=== PATIENT | female | born 1995 | race African-American/Black ===

== ENCOUNTER 2018-12-26 08:54 | Inpatient (IN) | payer MEDICAID ==
[~2018-12-26] VITALS: Ht 162.6 cm; Wt 112.5 kg
[2018-12-26] MEDS ORDERED: NALOXONE HCL 0.4 MG/ML 1ML VIAL IM PRN (09:45)
[2018-12-26] MEDS ORDERED: LIDOCAINE HCL 1% 20ML VIAL (Pyxis) INJ INFIL SCH (09:45)
[2018-12-26] MEDS ORDERED: CARBOPROST TROMETHAMINE 250 MCG/ML AMPUL IM PRN (09:45)
[2018-12-26] MEDS ORDERED: METHYLERGONOVINE MALEATE 0.2 MG/ML IM PRN (09:45)
[2018-12-26] MEDS: LACTATED RINGERS 1,000 ML IV SCH ×4 (09:53→22:49)
[2018-12-26 10:13] LABS: BASOPHILS % 0.4 % (0.0-2.0); EOSINOPHILS % 0.2 % (0.0-5.0); HEMATOCRIT. 35.1 % (36.0-48.0); HEMOGLOBIN. 11.5 g/dL (12.0-16.0); LYMPHOCYTES % 13.7 % (20.0-50.0); MEAN CORPUSCULAR HEMOGLOBIN 30.9 pg (28.0-32.0); MEAN CORPUSCULAR VOLUME 94.2 fL (81.0-99.0); MEAN PLATELET VOLUME 11.5 fl (7.4-10.4); MONOCYTES % 7.6 % (2.0-8.0); NEUTROPHILS % 78.1 % (40.0-76.0); PLATELET 152 x1000/uL (130-400); RED BLOOD CELL COUNT 3.72 mill/uL (4.2-5.4); RED CELL DISTRIBUTION WIDTH 15.1 % (11.6-14.6)
[2018-12-26 10:16] LABS: CLARITY URINE CLEAR (CLEAR); COLOR URINE YELLOW (YELLOW); KETONES URINE NEGATIVE (NEGATIVE); LEUKOCYTE ESTERASE URINE 3+ (NEGATIVE); NITRITE URINE NEGATIVE (NEGATIVE); OCCULT BLOOD URINE NEGATIVE (NEGATIVE); PH URINE 6.5 (4.5-8.0); PROTEIN URINE NEGATIVE (NEGATIVE); SPECIFIC GRAVITY URINE 1.012 (1.005-1.030); UROBILINOGEN URINE 0.2 E.U./dL (0.2-1.0)
[2018-12-26 10:23] LABS: PARTIAL THROMBOPLASTIN TIME 28.7 sec (23.4-31.0); PROTHROMBIN TIME 10.6 sec (9.6-11.0)
[2018-12-26 10:25] LABS: *BARBITURATES SCREEN URINE NEGATIVE (NEGATIVE)
[2018-12-26 10:26] LABS: *AMPHETAMINES SCREEN URINE NEGATIVE (NEGATIVE); *BENZODIAZEPINES SCREEN URINE NEGATIVE (NEGATIVE); *COCAINE SCREEN URINE NEGATIVE (NEGATIVE); METHADONE URINE SCREEN NEGATIVE (NEGATIVE); PHENCYCLIDINE URINE SCREEN NEGATIVE (NEGATIVE)
[2018-12-26 10:27] LABS: CANNABINOID URINE SCREEN NEGATIVE (NEGATIVE); OPIATES URINE SCREEN NEGATIVE (NEGATIVE)
[2018-12-26] MEDS: BUTORPHANOL TARTRATE 2 MG/ML VIAL IV PRN (11:05)
[2018-12-26] MEDS ORDERED: ROPIVACAINE HCL/PF EPIDURAL 200 ML EPI SCH (12:15)
[2018-12-26 12:22] LABS: HEPATITIS B SURFACE ANTIGEN NEGATIVE
[2018-12-26] MEDS: DEXT 5%/LR + PITOCIN 20UNITS/L 1,000 ML IV SCH (14:16)
[2018-12-27] MEDS ORDERED: FENTANYL CITRATE/PF 50MCG/ML 2ML VIAL ONE ×3 (01:31→11:09)
[2018-12-27] MEDS ORDERED: PNV1TABL50 MT (02:28)
[2018-12-27] MEDS ORDERED: FOLI0.4T2 MT (02:28)
[2018-12-27] MEDS: BUTORPHANOL TARTRATE 2 MG/ML VIAL IV PRN (06:23)
[2018-12-27] MEDS: LACTATED RINGERS 1,000 ML IV SCH (09:20)
[2018-12-27] MEDS ORDERED: MORPHINE SULFATE/PF 1MG/ML 10ML AMP ONE (11:10)
[2018-12-27] MEDS ORDERED: PHENYLEPHRINE HCL 10 MG/ML 1ML (IV VIAL) IV ONE (11:10)
[2018-12-27] MEDS: BUTORPHANOL TARTRATE 2 MG/ML VIAL IM PRN ×2 (11:31→16:34)
[2018-12-27] MEDS ORDERED: ROPIVACAINE HCL/PF EPIDURAL 200 ML EPI ONE (14:08)
[2018-12-27] MEDS ORDERED: MISOPROSTOL 200MCG TABLET ONE (19:38)
[2018-12-27] MEDS ORDERED: LIDOCAINE HCL 1% 20ML VIAL (Pyxis) INJ ONE (19:39)
[2018-12-27] MEDS ORDERED: DEXT 5%/LR + PITOCIN 20UNITS/L 1,000 ML IV SCH (19:54)
[2018-12-27] MEDS: DEXT 5%/LR + PITOCIN 20UNITS/L 1,000 ML IV SCH ×2 (19:56→20:31)
[2018-12-27] MEDS ORDERED: BENZOCAINE/LANOLIN/ALOE VERA SPRAY TOP PRN (20:00)
[2018-12-27] MEDS ORDERED: HEMORRHOIDAL SUPP PR PRN (20:00)
[2018-12-27] MEDS ORDERED: ACETAMINOPHEN WITH CODEINE 300/30MG TABLET PO PRN ×2 (20:00)
[2018-12-27] MEDS ORDERED: GLYCERIN/WITCH HAZEL LEAF MEDICATED PAD TOP PRN (20:00)
[2018-12-27] MEDS ORDERED: BISACODYL 10MG SUPP PR PRN (20:00)
[2018-12-27] MEDS ORDERED: ACETAMINOPHEN 500MG TABLET PO NR (20:15)
[2018-12-27] MEDS ORDERED: MISOPROSTOL 200MCG TABLET RC ONE (20:45)
[2018-12-27 22:00] VITALS: BP 133/77
[2018-12-27 22:30] VITALS: BP 133/78
[2018-12-27 23:00] VITALS: BP 106/69
[2018-12-28] MEDS: MAGNESIUM/ALUMINUM HYDROXIDE/SIMETHICONE 30ML UDC PO SCH ×5 (00:42→20:39)
[2018-12-28] MEDS: SIMETHICONE 80MG TABLET CHEW PO SCH ×5 (00:42→20:39)
[2018-12-28] MEDS: DOCUSATE SODIUM 100MG CAPSULE PO SCH ×2 (00:43→20:38)
[2018-12-28 00:51] VITALS: BP 116/65
[2018-12-28] MEDS: IBUPROFEN 400MG TABLET PO PRN (00:51)
[2018-12-28 05:00] VITALS: BP 108/57
[2018-12-28 06:49] LABS: HEMATOCRIT. 21.8 % (36.0-48.0); HEMOGLOBIN. 7.2 g/dL (12.0-16.0); MEAN CORPUSCULAR HEMOGLOBIN 30.9 pg (28.0-32.0); MEAN CORPUSCULAR VOLUME 93.7 fL (81.0-99.0); MEAN PLATELET VOLUME 11.3 fl (7.4-10.4); PLATELET 119 x1000/uL (130-400); RED BLOOD CELL COUNT 2.33 mill/uL (4.2-5.4); RED CELL DISTRIBUTION WIDTH 15.4 % (11.6-14.6)
[2018-12-28 08:20] VITALS: BP 103/52
[2018-12-28] MEDS: PRENATAL VIT/FE FUMARATE/FA TABLET PO SCH (08:38)
[2018-12-28 15:30] VITALS: BP 107/52
[2018-12-28] MEDS ORDERED: LACTATED RINGERS 1,000 ML IV SCH ×3 (16:45→18:00)
[2018-12-28 20:31] LABS: PLATELET ESTIMATE DECREASED
[2018-12-28 20:54] VITALS: BP 126/65
[2018-12-29] MEDS: IBUPROFEN 400MG TABLET PO PRN ×2 (03:59→16:44)
[2018-12-29 04:00] VITALS: BP 106/66
[2018-12-29 07:08] LABS: MEAN CORPUSCULAR HEMOGLOBIN 31.7 pg (28.0-32.0); MEAN CORPUSCULAR VOLUME 94.1 fL (81.0-99.0); MEAN PLATELET VOLUME 11.2 fl (7.4-10.4); PLATELET 135 x1000/uL (130-400); RED BLOOD CELL COUNT 2.14 mill/uL (4.2-5.4); RED CELL DISTRIBUTION WIDTH 15.5 % (11.6-14.6)
[2018-12-29] MEDS: PRENATAL VIT/FE FUMARATE/FA TABLET PO SCH (07:48)
[2018-12-29] MEDS: MAGNESIUM/ALUMINUM HYDROXIDE/SIMETHICONE 30ML UDC PO SCH ×4 (07:48→21:31)
[2018-12-29] MEDS: SIMETHICONE 80MG TABLET CHEW PO SCH ×4 (07:48→21:33)
[2018-12-29 08:00] VITALS: BP 117/71
[2018-12-29 08:25] LABS: HEMATOCRIT. 20.1 % (36.0-48.0); HEMOGLOBIN. 6.8 g/dL (12.0-16.0)
[2018-12-29] MEDS: FERROUS SULFATE 325MG TABLET PO SCH ×2 (13:21→17:56)
[2018-12-29 13:53] LABS: PLATELET ESTIMATE NORMAL
[2018-12-29 20:42] VITALS: BP 120/63
[2018-12-29 21:02] LABS: MEAN CORPUSCULAR HEMOGLOBIN 31.3 pg (28.0-32.0); MEAN CORPUSCULAR VOLUME 94.9 fL (81.0-99.0); PLATELET 140 x1000/uL (130-400); RED BLOOD CELL COUNT 1.96 mill/uL (4.2-5.4); RED CELL DISTRIBUTION WIDTH 15.5 % (11.6-14.6)
[2018-12-29 21:06] LABS: HEMOGLOBIN 6.1 g/dL (12.0-16.0)
[2018-12-29 21:07] LABS: HEMATOCRIT 18.6 % (36.0-48.0)
[2018-12-29] MEDS: DOCUSATE SODIUM 100MG CAPSULE PO SCH (21:31)
[2018-12-30] VITALS (10 sets, daily range): BP systolic 112–132; BP diastolic 62–75
[2018-12-30] MEDS: MAGNESIUM/ALUMINUM HYDROXIDE/SIMETHICONE 30ML UDC PO SCH (07:30)
[2018-12-30] MEDS: SIMETHICONE 80MG TABLET CHEW PO SCH (08:00)
[2018-12-30] MEDS: PRENATAL VIT/FE FUMARATE/FA TABLET PO SCH (08:10)
[2018-12-30] MEDS: FERROUS SULFATE 325MG TABLET PO SCH ×3 (08:10→17:29)
[2018-12-30] MEDS: IBUPROFEN 400MG TABLET PO PRN (08:11)
[2018-12-30] MEDS ORDERED: DIPHENHYDRAMINE 25MG CAPSULE PO NR (10:30)
[2018-12-30] MEDS ORDERED: ACETAMINOPHEN 325MG TABLET PO NR (10:30)
[2018-12-30 19:09] LABS: HEMATOCRIT 24.7 % (36.0-48.0); HEMOGLOBIN 8.4 g/dL (12.0-16.0); MEAN CORPUSCULAR HEMOGLOBIN 30.4 pg (28.0-32.0); PLATELET 157 x1000/uL (130-400); RED BLOOD CELL COUNT 2.75 mill/uL (4.2-5.4); RED CELL DISTRIBUTION WIDTH 16.8 % (11.6-14.6)
== END 2018-12-30 20:25 | disposition home or self-care (01) | DRG 560 ==
LOC: OBSVTOIN 08:54 → 8 EST LDRP 08:54 → 8EST 12-27 21:49
PROVIDERS: ADMIT Obstetrics & Gynecology; ATTEND Obstetrics & Gynecology
PROC: 0KQM0ZZ Repair Perineum Muscle, Open Approach (ICD-10-PCS; principal; 2018-12-27)
PROC: 10E0XZZ Delivery of Products of Conception, External Approach (ICD-10-PCS; 2018-12-27)
PROC: 3E0R3BZ Introduction of Anesthetic Agent into Spinal Canal, Percutaneous Approach (ICD-10-PCS; 2018-12-27)
PROC: 00HU33Z Insertion of Infusion Device into Spinal Canal, Percutaneous Approach (ICD-10-PCS; 2018-12-27)
PROC: 30233N1 Transfusion of Nonautologous Red Blood Cells into Peripheral Vein, Percutaneous Approach (ICD-10-PCS; 2018-12-30)
DX: O70.1 Second degree perineal laceration during delivery (principal); D62 Acute posthemorrhagic anemia; O99.13 Other diseases of the blood and blood-forming organs and certain disorders involving the immune mechanism complicating the puerperium; O99.03 Anemia complicating the puerperium; D72.829 Elevated white blood cell count, unspecified; Z3A.39 39 weeks gestation of pregnancy; Z37.0 Single live birth
CPT/HCPCS: 36415; 76805; 80305; 81003; 85027; 86592; 86703; 86762; 86850; 86900; 86920; 87340; C1893; J0595; J2274; J2370; J2590; J2795; J3010; J3490; J7040; J7120; P9016; Q0163; A4315

== ENCOUNTER 2020-02-22 11:22 | Emergency (ER) | payer MEDICAID ==
[~2020-02-22] VITALS: Ht 162.6 cm; Wt 114.0 kg
[2020-02-22] MEDS ORDERED: SODIUM CHLORIDE 0.9% 1,000 ML IV ONE (13:00)
[2020-02-22 14:57] LABS: CLARITY URINE CLEAR (CLEAR); COLOR URINE YELLOW (YELLOW); KETONES URINE 3+ (NEGATIVE); LEUKOCYTE ESTERASE URINE NEGATIVE (NEGATIVE); NITRITE URINE NEGATIVE (NEGATIVE); OCCULT BLOOD URINE NEGATIVE (NEGATIVE); PROTEIN URINE NEGATIVE (NEGATIVE); SPECIFIC GRAVITY URINE 1.017 (1.005-1.030); UROBILINOGEN URINE 0.2 E.U./dL (0.2-1.0)
[2020-02-22 15:26] LABS: BASOPHILS % 0.2 % (0.0-2.0); EOSINOPHILS % 0.1 % (0.0-5.0); HEMATOCRIT. 36.8 % (36.0-48.0); HEMOGLOBIN. 12.2 g/dL (12.0-16.0); LYMPHOCYTES % 15.2 % (20.0-50.0); MEAN CORPUSCULAR HEMOGLOBIN 30.6 pg (28.0-32.0); MEAN CORPUSCULAR VOLUME 92.1 fL (81.0-99.0); MEAN PLATELET VOLUME 11.2 fl (7.4-10.4); MONOCYTES % 6.7 % (2.0-8.0); NEUTROPHILS % 77.8 % (40.0-76.0); PLATELET 138 x1000/uL (130-400); RED BLOOD CELL COUNT 3.99 mill/uL (4.2-5.4); RED CELL DISTRIBUTION WIDTH 15.6 % (11.6-14.6)
[2020-02-22 15:35] LABS: CHLORIDE 106 mEq/L (98-107)
[2020-02-22 15:40] LABS: PARTIAL THROMBOPLASTIN TIME 29.2 sec (23.4-31.0)
[2020-02-22] MEDS ORDERED: ACETAMINOPHEN 325MG TABLET PO ONE (16:00)
[2020-02-22 17:30] VITALS: BP 115/61
== END 2020-02-22 18:00 | disposition home or self-care (01) ==
LOC: ER 11:22
DX: O26.893 Other specified pregnancy related conditions, third trimester (principal); R10.9 Unspecified abdominal pain; D72.829 Elevated white blood cell count, unspecified; E16.2 Hypoglycemia, unspecified; Z3A.33 33 weeks gestation of pregnancy
CPT/HCPCS: 36415; 72195; 74181; 76857; 80053; 81003; 82962; 83690; 85025; 85610; 85730; 93005; 96360; 99281; 99285; J7030

== ENCOUNTER 2020-03-14 12:04 | Observation (INO) | payer MEDICAID ==
[~2020-03-14] VITALS: Ht 162.6 cm; Wt 117.9 kg
[2020-03-14 12:59] LABS: CLARITY URINE CLEAR (CLEAR); COLOR URINE YELLOW (YELLOW); KETONES URINE NEGATIVE (NEGATIVE); LEUKOCYTE ESTERASE URINE TRACE (NEGATIVE); NITRITE URINE NEGATIVE (NEGATIVE); OCCULT BLOOD URINE NEGATIVE (NEGATIVE); PH URINE 6.5 (4.5-8.0); PROTEIN URINE NEGATIVE (NEGATIVE); UROBILINOGEN URINE 0.2 E.U./dL (0.2-1.0)
[2020-03-14 13:01] LABS: BASOPHILS % 0.3 % (0.0-2.0); EOSINOPHILS % 0.2 % (0.0-5.0); HEMATOCRIT. 36.3 % (36.0-48.0); HEMOGLOBIN. 12.1 g/dL (12.0-16.0); LYMPHOCYTES % 17.3 % (20.0-50.0); MEAN CORPUSCULAR HEMOGLOBIN 30.3 pg (28.0-32.0); MEAN CORPUSCULAR VOLUME 90.7 fL (81.0-99.0); MEAN PLATELET VOLUME 11.4 fl (7.4-10.4); MONOCYTES % 7.6 % (2.0-8.0); NEUTROPHILS % 74.6 % (40.0-76.0); PLATELET 124 x1000/uL (130-400); RED CELL DISTRIBUTION WIDTH 15.7 % (11.6-14.6)
[2020-03-14 13:06] LABS: CHLORIDE 109 mEq/L (98-107)
[2020-03-14 13:31] LABS: D-DIMER 6.64 mg/L FEU (<0.50); INR 1.1; PARTIAL THROMBOPLASTIN TIME 29.4 sec (23.4-31.0); PROTHROMBIN TIME 11.1 sec (9.6-11.0)
== END 2020-03-14 14:30 | disposition home or self-care (01) ==
LOC: 8 EST LDRP 12:04
PROVIDERS: ADMIT Obstetrics & Gynecology; ATTEND Obstetrics & Gynecology
DX: O13.3 Gestational [pregnancy-induced] hypertension without significant proteinuria, third trimester (principal); Z3A.35 35 weeks gestation of pregnancy
CPT/HCPCS: 36415; 59025; 76805; 76818; 80053; 81003; 84550; 85025; 85379; 85384; 85610; 85730; G0378; 99281

== ENCOUNTER 2020-03-31 10:40 | Observation (INO) | payer MEDICAID ==
[~2020-03-31] VITALS: Ht 162.6 cm; Wt 117.9 kg
== END 2020-03-31 13:15 | disposition home or self-care (01) ==
LOC: 8 EST LDRP 10:40
PROVIDERS: ADMIT Obstetrics & Gynecology; ATTEND Obstetrics & Gynecology
DX: O36.8130 Decreased fetal movements, third trimester, not applicable or unspecified (principal); Z3A.37 37 weeks gestation of pregnancy
CPT/HCPCS: 59025; 76815; 76818; G0378; 99281

== ENCOUNTER 2020-04-02 12:44 | Inpatient (IN) | payer MEDICAID ==
[~2020-04-02] VITALS: Ht 160 cm; Wt 118.8 kg
[2020-04-02] MEDS ORDERED: ACYC200C (13:33)
[2020-04-02] MEDS ORDERED: PREN-196 (13:33)
[2020-04-02 15:34] LABS: BASOPHILS % 0.4 % (0.0-2.0); EOSINOPHILS % 0.2 % (0.0-5.0); HEMATOCRIT. 35.1 % (36.0-48.0); HEMOGLOBIN. 11.7 g/dL (12.0-16.0); LYMPHOCYTES % 19.2 % (20.0-50.0); MEAN CORPUSCULAR HEMOGLOBIN 30.1 pg (28.0-32.0); MEAN CORPUSCULAR VOLUME 90.4 fL (81.0-99.0); MEAN PLATELET VOLUME 11.6 fl (7.4-10.4); MONOCYTES % 9.8 % (2.0-8.0); NEUTROPHILS % 70.4 % (40.0-76.0); PLATELET 112 x1000/uL (130-400); RED BLOOD CELL COUNT 3.88 mill/uL (4.2-5.4); RED CELL DISTRIBUTION WIDTH 15.6 % (11.6-14.6)
[2020-04-02 15:54] LABS: D-DIMER 7.84 mg/L FEU (<0.50); PARTIAL THROMBOPLASTIN TIME 27.1 sec (23.4-31.0); PROTHROMBIN TIME 10.9 sec (9.6-11.0)
[2020-04-02 15:55] LABS: CLARITY URINE CLEAR (CLEAR); COLOR URINE YELLOW (YELLOW); KETONES URINE NEGATIVE (NEGATIVE); LEUKOCYTE ESTERASE URINE TRACE (NEGATIVE); NITRITE URINE NEGATIVE (NEGATIVE); OCCULT BLOOD URINE NEGATIVE (NEGATIVE); PROTEIN URINE 1+ (NEGATIVE); SPECIFIC GRAVITY URINE 1.017 (1.005-1.030); UROBILINOGEN URINE 0.2 E.U./dL (0.2-1.0)
[2020-04-02] MEDS: LACTATED RINGERS 1,000 ML IV SCH ×2 (16:11→22:15)
[2020-04-02 16:19] LABS: *AMPHETAMINES SCREEN URINE NEGATIVE (NEGATIVE); *BARBITURATES SCREEN URINE NEGATIVE (NEGATIVE); *BENZODIAZEPINES SCREEN URINE NEGATIVE (NEGATIVE); *COCAINE SCREEN URINE NEGATIVE (NEGATIVE)
[2020-04-02 16:20] LABS: CANNABINOID URINE SCREEN NEGATIVE (NEGATIVE); METHADONE URINE SCREEN NEGATIVE (NEGATIVE); OPIATES URINE SCREEN NEGATIVE (NEGATIVE); PHENCYCLIDINE URINE SCREEN NEGATIVE (NEGATIVE)
[2020-04-02 16:29] LABS: CHLORIDE 108 mEq/L (98-107)
[2020-04-02 16:59] LABS: HEPATITIS B SURFACE ANTIGEN NEGATIVE
[2020-04-02] MEDS ORDERED: BUTORPHANOL TARTRATE 2 MG/ML VIAL IV PRN (21:45)
[2020-04-02] MEDS ORDERED: LACTATED RINGERS 1,000 ML IV SCH (21:45)
[2020-04-02] MEDS ORDERED: DEXT 5%/LR + PITOCIN 20UNITS/L 1,000 ML IV SCH (21:45)
[2020-04-02] MEDS ORDERED: PENICILLIN G POTASSIUM 5 MMU in DEXT 5% WATER 100 ML IV SCH (23:00)
[2020-04-02] MEDS: ONDANSETRON HCL 4MG/2ML INJ IV PRN (23:54)
[2020-04-03] MEDS ORDERED: HYDRALAZINE 20MG/ML VIAL IV PRN (00:30)
[2020-04-03] MEDS ORDERED: LABETALOL HCL 5MG/ML VIAL 20ML IV PRN ×3 (00:30)
[2020-04-03] MEDS: PENICILLIN G POTASSIUM 2.5 MMU in DEXTROSE 5% WATER 50 ML IV SCH ×5 (02:55→21:00)
[2020-04-03] MEDS: LACTATED RINGERS 1,000 ML IV SCH ×3 (05:47→18:17)
[2020-04-03 07:07] LABS: BASOPHILS % 0.2 % (0.0-2.0); EOSINOPHILS % 0.1 % (0.0-5.0); HEMATOCRIT. 33.4 % (36.0-48.0); HEMOGLOBIN. 11.3 g/dL (12.0-16.0); LYMPHOCYTES % 18.2 % (20.0-50.0); MEAN CORPUSCULAR HEMOGLOBIN 30.6 pg (28.0-32.0); MEAN CORPUSCULAR VOLUME 90.7 fL (81.0-99.0); MEAN PLATELET VOLUME 12.8 fl (7.4-10.4); MONOCYTES % 7.1 % (2.0-8.0); NEUTROPHILS % 74.4 % (40.0-76.0); PLATELET 115 x1000/uL (130-400); RED BLOOD CELL COUNT 3.68 mill/uL (4.2-5.4); RED CELL DISTRIBUTION WIDTH 15.4 % (11.6-14.6)
[2020-04-03 07:10] LABS: CHLORIDE 111 mEq/L (98-107)
[2020-04-03 07:25] LABS: D-DIMER 8.84 mg/L FEU (<0.50); INR 1.1; PARTIAL THROMBOPLASTIN TIME 27.6 sec (23.4-31.0); PROTHROMBIN TIME 11.2 sec (9.6-11.0)
[2020-04-03] MEDS ORDERED: MISOPROSTOL 100MCG TABLET RC SCH (11:30)
[2020-04-03] MEDS ORDERED: LIDOCAINE HCL 1% 20ML VIAL (Pyxis) INJ INFIL SCH (11:30)
[2020-04-03] MEDS ORDERED: ROPIVACAINE HCL 2MG/ML (0.2%) 200ML BOTTLE IR NR (17:45)
[2020-04-03] MEDS ORDERED: ROPIVACAINE HCL/PF 100ML 100 ML IR SCH (18:00)
[2020-04-03] MEDS ORDERED: ROPIVACAINE HCL/PF 100ML 200 ML IR SCH (18:02)
[2020-04-04] MEDS: ONDANSETRON HCL 4MG/2ML INJ IV PRN (00:34)
[2020-04-04] MEDS: PENICILLIN G POTASSIUM 2.5 MMU in DEXTROSE 5% WATER 50 ML IV SCH (00:34)
[2020-04-04] MEDS ORDERED: BENZOCAINE/LANOLIN/ALOE VERA SPRAY TOP PRN (02:00)
[2020-04-04] MEDS ORDERED: HEMORRHOIDAL SUPP PR PRN (02:00)
[2020-04-04] MEDS ORDERED: IBUPROFEN 400MG TABLET PO PRN (02:00)
[2020-04-04] MEDS ORDERED: LANOLIN OINT 7GM TUBE TOP PRN (02:00)
[2020-04-04] MEDS ORDERED: DIPHENHYDRAMINE 25MG CAPSULE PO PRN (02:00)
[2020-04-04] MEDS ORDERED: GLYCERIN/WITCH HAZEL LEAF MEDICATED PAD TOP PRN (02:00)
[2020-04-04] MEDS ORDERED: DEXT 5%/LR + PITOCIN 20UNITS/L 1,000 ML IV SCH (02:00)
[2020-04-04] MEDS ORDERED: ACETAMINOPHEN WITH CODEINE 300/30MG TABLET PO PRN (02:00)
[2020-04-04] MEDS ORDERED: BISACODYL 10MG SUPP PR PRN (02:00)
[2020-04-04] MEDS: IBUPROFEN 800MG TABLET PO PRN ×3 (02:28→23:44)
[2020-04-04 03:45] VITALS: BP 138/80
[2020-04-04] MEDS ORDERED: MAGNESIUM/ALUMINUM HYDROXIDE/SIMETHICONE 30ML UDC PO SCH (07:30)
[2020-04-04 08:00] VITALS: BP 128/82
[2020-04-04] MEDS ORDERED: SIMETHICONE 80MG TABLET CHEW PO SCH (08:00)
[2020-04-04] MEDS ORDERED: PRENATAL VIT/FE FUMARATE/FA TABLET PO SCH (09:00)
[2020-04-04 16:00] VITALS: BP 136/70
[2020-04-04 19:15] VITALS: BP 146/72
[2020-04-04 19:16] VITALS: BP 146/72
[2020-04-04] MEDS ORDERED: DOCUSATE SODIUM 100MG CAPSULE PO SCH (21:00)
[2020-04-04 23:45] VITALS: BP 127/74
[2020-04-05] MEDS ORDERED: FERROUS SULFATE 325MG TABLET PO SCH (07:30)
[2020-04-05 08:24] LABS: BASOPHILS % 0.4 % (0.0-2.0); EOSINOPHILS % 0.4 % (0.0-5.0); HEMATOCRIT. 31.5 % (36.0-48.0); HEMOGLOBIN. 10.6 g/dL (12.0-16.0); LYMPHOCYTES % 22.2 % (20.0-50.0); MEAN CORPUSCULAR HEMOGLOBIN 30.5 pg (28.0-32.0); MEAN CORPUSCULAR VOLUME 90.4 fL (81.0-99.0); MEAN PLATELET VOLUME 11.6 fl (7.4-10.4); MONOCYTES % 7.6 % (2.0-8.0); NEUTROPHILS % 69.4 % (40.0-76.0); PLATELET 97 x1000/uL (130-400); RED BLOOD CELL COUNT 3.49 mill/uL (4.2-5.4); RED CELL DISTRIBUTION WIDTH 15.4 % (11.6-14.6)
== END 2020-04-05 16:38 | disposition home or self-care (01) | DRG 560 ==
LOC: OBSVTOIN 12:44 → 8 EST LDRP 12:44 → 8EST 04-04 03:30
PROVIDERS: ADMIT Obstetrics & Gynecology; ATTEND Obstetrics & Gynecology
PROC: 10E0XZZ Delivery of Products of Conception, External Approach (ICD-10-PCS; principal; 2020-04-02)
PROC: 0KQM0ZZ Repair Perineum Muscle, Open Approach (ICD-10-PCS; 2020-04-02)
PROC: 3E0R3BZ Introduction of Anesthetic Agent into Spinal Canal, Percutaneous Approach (ICD-10-PCS; 2020-04-02)
PROC: 00HU33Z Insertion of Infusion Device into Spinal Canal, Percutaneous Approach (ICD-10-PCS; 2020-04-02)
PROC: 3E0P7VZ Introduction of Hormone into Female Reproductive, Via Natural or Artificial Opening (ICD-10-PCS; 2020-04-02)
DX: O99.12 Other diseases of the blood and blood-forming organs and certain disorders involving the immune mechanism complicating childbirth (principal); O36.8130 Decreased fetal movements, third trimester, not applicable or unspecified; O99.02 Anemia complicating childbirth; D69.6 Thrombocytopenia, unspecified; O70.1 Second degree perineal laceration during delivery; D62 Acute posthemorrhagic anemia; Z3A.38 38 weeks gestation of pregnancy; Z37.0 Single live birth; O13.9 Gestational [pregnancy-induced] hypertension without significant proteinuria, unspecified trimester
CPT/HCPCS: 36415; 76805; 76815; 76818; 80053; 80305; 81003; 84550; 85025; 85379; 85384; 86592; 86703; 86762; 86850; 86900; 87340; 99281; G0378; J0595; J2405; J2540; J2590; J2795; J3490; J7060; J7120

== ENCOUNTER 2020-04-07 20:12 | Emergency (ER) | payer MEDICAID ==
[~2020-04-07] VITALS: Ht 160 cm; Wt 118.0 kg
[~2020-04-07 20:12] MED LIST: ACYC200C; PREN-196
[2020-04-07 20:17] VITALS: BP 144/94
[2020-04-07] MEDS ORDERED: MISOPROSTOL 200MCG TABLET PO ONE (20:30)
[2020-04-07 23:15] LABS: HEMATOCRIT 37.2 % (36.0-48.0); HEMOGLOBIN 12.2 g/dL (12.0-16.0); MEAN CORPUSCULAR HEMOGLOBIN 29.8 pg (28.0-32.0); MEAN CORPUSCULAR VOLUME 90.8 fL (81.0-99.0); PLATELET 150 x1000/uL (130-400); RED CELL DISTRIBUTION WIDTH 15.6 % (11.6-14.6)
== END 2020-04-08 00:22 | disposition home or self-care (01) ==
LOC: ER 20:12
DX: O72.1 Other immediate postpartum hemorrhage (principal); I10 Essential (primary) hypertension
CPT/HCPCS: 36415; 85027; 99283